=== PATIENT | female | born 1995 | race Caucasian/White ===

== ENCOUNTER 2019-01-18 16:03 | Emergency (ER) | payer OTHER ==
--- OUTSIDE RECORDS SUMMARY | 2019-01-18 16:05 | XMS REPORT | Clinical Summary ---
:1995 Author Organization [facility] Address [address] [place] [address] Care Team Providers Name Role Phone Asked, No Pcp Primary Care Provider Unavailable Allergies No Known Allergies Medications Medication Sig Dispensed Refills Start Date End Date Status ondansetron ODT DISSOLVE 1 TABLET 0 06/14/2016 Active (ZOFRAN-ODT) 4 MG ON THE TONGUE disintegrating tablet EVERY 4 HOURS NEEDED FOR NAUSEA OR VOMITING pantoprazole (PROTONIX) TAKE 1 TABLET BY 11 07/11/2016 Active 20 MG EC tablet MOUTH EVERY MORNING BEFORE BREAKFAST ALPRAZolam (XANAX) 0.25 Take 0.25 mg by 0 07/15/2016 Active MG tablet mouth 2 (two) times a day as needed. sertraline (ZOLOFT) 50 TAKE 1 TAB (50 MG 0 06/08/2016 Active MG tablet TOTAL) BY MOUTH ONCE A DAY FOR 90 DAYS norgestimate-ethinyl Take 1 tablet by 9 07/11/2016 Active estradiol (ORTHO mouth once daily. TRI-CYCLEN,TRINESSA) 0.18/0.215/0.25 mg-35 mcg (28) per tablet PARoxetine (PAXIL) 20 Take 20 mg by 0 09/02/2016 Active MG tablet mouth once daily. 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 Last Filed Vital Signs Not on file Plan of Treatment Health Maintenance Due Date Last Done Comments CHLAMYDIA SCREENING 2010 CERVICAL CANCER SCREENING 12/29/2015 INFLUENZA VACCINE 04/12/2019 Results Not on fileafter 01/17/2018 Insurance Payer Benefit Plan / Group Subscriber ID Type Phone Address AETNA AETNA HMO,POS,EPO, MC/EC xxxxxxxxx HMO (Home) [place] [phone] [facility] ([place]) [place] [address] Advance Directives Patient has advance care planning documents on file. For more information, please contact:Андрей Jeter[address] Hern[address] [place] [address]
[2019-01-18 16:57] LABS: Urine Blood NEGATIVE (NEG); Urine Glucose NEGATIVE (NEG); Urine Protein NEGATIVE (NEG); Urine Specific Gravity 1.015 (1.005-1.030)
[2019-01-18 18:11] LABS: Absolute Lymphocytes (CBC) 1.7 K/uL (0.7-4.9); Absolute Monocytes 0.5 K/uL (0.1-1.3); Absolute Neutrophil 5.9 K/uL (1.8-8.0); Basophils % 1.7 % (0-1.3); Eosinophils % 2.9 % (0-4.4); Hematocrit 45.2 % (36.0-45.0); Lymphocytes % 19.6 % (15.3-44.8); MPV 10.8 fL (7.6-11.3); Monocytes % 5.4 % (3.3-12.3)
[2019-01-18 18:28] LABS: Albumin 4.5 g/dL (3.4-5.0); Bilirubin Direct 0.2 mg/dL (0-0.2); Bilirubin Total 0.8 mg/dL (0.2-1.0); Potassium 3.5 mmol/L (3.5-5.1); Protein, Total 7.9 g/dL (6.4-8.2)
--- NOTE | 2019-01-18 19:05 | RAD REPORT ---
EXAM DESCRIPTION: CTAbdomen Pelvis W Contrast - 01/18/2019 6:56 pm CLINICAL HISTORY: Abdominal pain. right sided abdominal pain, IV ONLY COMPARISON: <Comparisons> TECHNIQUE: Biphasic CT imaging of the abdomen and pelvis was performed with 100 ml non-ionic IV cont rast. All CT scans are performed using dose optimization technique as appropriate and may include automated exposure control or mA/KV adjustment according to patient size. FINDINGS: The lung bases are clear. The liver, spleen, pancreas, adrenal glands and kidneys are within normal limits. No bowel obstruction, free air, free fluid or abscess. The appendix is thickened and dilated to 10 m m likely indicating early acute appendicitis. No evidence of significant lymphadenopathy. No suspicious bony findings. IMPRESSION: Early acute appendicitis is suspected.
[2019-01-18] MEDS ORDERED: CEFOXITIN/SWI 1gm 1 GM/10 ML SYR ONE (20:35)
[2019-01-18] MEDS ORDERED: METRONIDAZOLE 500mg IVPB 500 MG/100 ML BAG IV ONE (20:35)
--- NOTE | 2019-01-18 20:57 | EDPHYS ---
Physician Documentation [facility] Name: Malena Kelley Age: 23 yrs Sex: Female : 1995 Arrival Date: 01/18/2019 Time: 16:05 Bed 24 Private MD: Marylu Reynoso K ED Physician Leandro Keys HPI: 01/18 17:31 This 23 yrs old Female presents to ER via Ambulatory with complaints of jmm Abdominal Pain. 17:31 The patient presents with abdominal pain that is diffuse. Onset: The symptoms/episode jmm began/occurred gradually, last night. This is a a 23 year old female with a history of Von Willebrands that presents to the ED with complaints of abdominal pain beginning last night with nausea. Patient states the pain has worsened since last night. . 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 - Social history:: Smoking status: unknown. - Ebola Screening: : No symptoms or risks identified at this time. ROS: 17:31 Constitutional: Negative for fever, chills, and weight loss, Cardiovascular: Negative jmm for chest pain, palpitations, and edema, Respiratory: Negative for shortness of breath, cough, wheezing, and pleuritic chest pain. 17:31 : Negative for injury, bleeding, discharge, and swelling, MS/Extremity: Negative for injury and deformity, Skin: Negative for injury, rash, and discoloration, Neuro: Negative for headache, weakness, numbness, tingling, and seizure, Psych: Negative for depression, anxiety, suicide ideation, homicidal ideation, and hallucinations. 17:31 Abdomen/GI: Positive for abdominal pain. 17:31 All other systems are negative. Exam: 17:31 Constitutional: This is a well developed, well nourished patient who is awake, alert, jmm and in no acute distress. Head/Face: atraumatic. Eyes: EOMI, no conjunctival erythema appreciated ENT: Moist Mucus Membranes Neck: Trachea midline, Supple Chest/axilla: Normal chest wall appearance and motion. Cardiovascular: Regular rate and rhythm. No edema appreciated Respiratory: Normal respirations, no respiratory distress appreciated 17:31 Abdomen/GI: Inspection: abdomen appears normal, Bowel sounds: normal, Palpation: soft, moderate abdominal tenderness, in the right upper quadrant and right lower quadrant, Rectal exam: 17:31 Back: ROM is normal. 17:31 Musculoskeletal/extremity: ROM: intact in all extremities. 17:31 Skin: Appearance: 17:31 Neuro: Orientation: is normal, Mentation: is normal, Memory: is normal. 17:31 Psych: Behavior/mood is pleasant, cooperative. Vital Signs: 16:09 BP 142 / 86; Pulse 112; Resp 18; Temp 99.5(TE); Pulse Ox 99% on R/A; Weight 58.97 kg; hj Height 2 ft. 54 in. (198.12 cm); Pain 7/10; 18:11 BP 106 / 86; Pulse 86; Resp 17; Pulse Ox 100% ; rv 18:14 Temp 98.7(O); rv 20:28 BP 114 / 71; Pulse 80; Resp 17; Pulse Ox 100% ; rv 20:30 Temp 98.5(O); rv 21:30 BP 116 / 85; Pulse 81; Resp 16; Temp 98.3; Pulse Ox 100% ; rv 22:30 BP 110 / 72; Pulse 79; Resp 17; Temp 98; Pulse Ox 99% ; rv 05 01:47 BP 112 / 86; Pulse 84; Resp 16; Temp 97.8; Pulse Ox 99% ; rv 01/18 16:09 Body Mass Index 15.02 (58.97 kg, 198.12 cm) hj MDM: 01/18 17:27 Patient medically screened. jodee 20:55 Data reviewed: vital signs, nurses notes. Counseling: I had a detailed discussion with jodee the patient and/or guardian regarding: the historical points, exam findings, and any diagnostic results supporting the discharge/admit diagnosis, lab results, radiology results, the need to transfer to another facility. 22:12 ED course: I discussed the patient with Dr. Carmona and Dr. Mora prior to transfer. jodee Mora stated the patient could not be safely managed at this hospital due to lack of labs which would test the patient's clotting factors. I discussed the patient with Dr. Núñez whom accepted transfer to [facility]. I also discussed the patient with surgery and hematology whom would also manage the patient. . 01/18 16:44 Order name: Urine Dipstick--Ancillary (enter results); Complete Time: 17:07 01/18 16:44 Order name: Urine --Ancillary (enter results) 01/18 17:30 Order name: Basic Metabolic Panel; Complete Time: 18:40 [facility] 01/18 17:30 Order name: CBC with Diff; Complete Time: 18:22 [facility] 01/18 17:30 Order name: Creatinine for Radiology; Complete Time: 18:22 [facility] 01/18 17:30 Order name: Hepatic Function; Complete Time: 18:40 [facility] 01/18 17:30 Order name: Lipase; Complete Time: 18:40 [facility] 01/18 17:30 Order name: CT Abd/Pelvis - W/Contrast; Complete Time: 19:25 [facility] 01/18 17:30 Order name: Type And Screen; Complete Time: 18:49 [facility] 01/18 20:45 Order name: PT-INR; Complete Time: 21:31 [facility] 01/18 23:41 Order name: ABO/RH no charge [facility] 01/18 16:11 Order name: Urine Dipstick-Ancillary (obtain specimen); Complete Time: 17: 01/18 16:11 Order name: Urine Test (obtain specimen); Complete Time: 17: 01/18 17:30 Order name: IV Saline Lock; Complete Time: 17:54 [facility] 01/18 17:30 Order name: Labs collected and sent; Complete Time: 17:54 jm Administered Medications: 18:00 Drug: NS 0.9% 1000 ml Route: IV; Rate: 1 bolus; Site: right antecubital; rv 20:28 Follow up: IV Status: Completed infusion; IV Intake: 1000ml rv 20:27 Drug: Mefoxin 1 grams Route: IVPB; Infused Over: 30 mins; Site: right antecubital; rv 21:00 Follow up: IV Status: Completed infusion; IV Intake: 50ml rv 20:47 Drug: Flagyl 500 mg Volume: 100 ml; Route: IVPB; Rate: 200 ml/hr; Infused Over: 30 rv mins; Site: right antecubital; Disposition: 01/19 06:59 Co-signature as Attending Physician, Leandro Keys MD I agree with the assessment and kdr plan of care. Disposition: 01/18/19 20:[address] [facility]. Diagnosis is Acute appendicitis. - Reason for transfer: Higher level of care. - Accepting physician is [place]. - Condition is Stable. - Problem is new. - Symptoms are unchanged. Signatures: Dispatcher [employer] EDMS Leandro Keys MD MD kdr Joey Cutler PA PA jmm Joaquin, Henry, RN RN Sandro Saxena RN RN rv Corrections: (The following items were deleted from the chart) 01:48 01/18 20:56 01/18/2019 20:[address] [facility]. rv Diagnosis is Acute appendicitis. Reason for transfer: Higher level of care. Accepting physician is Wilton. Condition is Stable. Problem is new. Symptoms are unchanged. jodee
--- NOTE | 2019-01-18 20:57 | ER ---
Nurse's Notes [facility] Name: Malena Kelley Age: 23 yrs Sex: Female : 1995 Arrival Date: 01/18/2019 Time: 16:05 Bed 24 Private MD: Marylu Reynoso K Diagnosis: Acute appendicitis Presentation: 01/18 16:07 Presenting complaint: Patient states: i started having this abd pain (cramping) last hj night from the (epigastric area down to the hip area); denies N/V; denies fever; denies diarrhea; LMP- 01/04/19;. Transition of care: patient was not received from another setting of care. Onset of symptoms was January 18, 2019. Risk Assessment: Do you want to hurt yourself or someone else? Patient reports no desire to harm self or others. Initial Sepsis Screen: Does the patient meet any 2 criteria? No. Patient's initial sepsis screen is negative. Does the patient have a suspected source of infection? No. Patient's initial sepsis screen is negative. Care prior to arrival: None. 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 - Social history:: Smoking status: unknown. - Ebola Screening: : No symptoms or risks identified at this time. Screenin:10 Abuse screen: Denies threats or abuse. Denies injuries from another. Nutritional rv screening: No deficits noted. Tuberculosis screening: No symptoms or risk factors identified. Fall Risk None identified. Assessment: 17:09 General: Appears in no apparent distress. uncomfortable, Behavior is calm, cooperative. rv Pain: Complains of pain in abdomen. Neuro: Level of Consciousness is awake, alert, obeys commands, Oriented to person, place, time, situation. Cardiovascular: Capillary refill < 3 seconds. Respiratory: Airway is patent. GI: Bowel sounds present X 4 quads. Abd is soft and non tender X 4 quads. : No signs and/or symptoms were reported regarding the genitourinary system. EENT: No signs and/or symptoms were reported regarding the EENT system. Derm: Skin is intact. Musculoskeletal: No signs and/or symptoms reported regarding the musculoskeletal system. 20:29 Reassessment: Patient appears in no apparent distress at this time. Patient and/or rv family updated on plan of care and expected duration. Pain level reassessed. Patient is alert, oriented x 3, equal unlabored respirations, skin warm/dry/pink. Patient states feeling better. Patient states symptoms have improved. Vital Signs: 16:09 BP 142 / 86; Pulse 112; Resp 18; Temp 99.5(TE); Pulse Ox 99% on R/A; Weight 58.97 kg; hj Height 2 ft. 54 in. (198.12 cm); Pain 7/10; 18:11 BP 106 / 86; Pulse 86; Resp 17; Pulse Ox 100% ; rv 18:14 Temp 98.7(O); rv 20:28 BP 114 / 71; Pulse 80; Resp 17; Pulse Ox 100% ; rv 20:30 Temp 98.5(O); rv 21:30 BP 116 / 85; Pulse 81; Resp 16; Temp 98.3; Pulse Ox 100% ; rv 22:30 BP 110 / 72; Pulse 79; Resp 17; Temp 98; Pulse Ox 99% ; rv 01/19 01:47 BP 112 / 86; Pulse 84; Resp 16; Temp 97.8; Pulse Ox 99% ; rv 01/18 16:09 Body Mass Index 15.02 (58.97 kg, 198.12 cm) ED Course: 01/18 16:05 Patient arrived in ED. ag5 16:05 Marylu Reynoso MD is Private Physician. ag5 16:08 Triage completed. hj 16:10 Arm band placed on right wrist. hj 17:06 [facility] 17:06 Leandro Keys MD is Attending Physician. [facility] 17:09 Sandro Valles, EVI is Primary Nurse. rv 17:11 Patient has correct armband on for positive identification. Bed in low position. Call rv light in reach. Side rails up X 1. Adult w/ patient. Pulse ox on. NIBP on. 17:33 Radiology exam delayed due to lab results not completed at this time. (BUN/Creatinine). 17:54 Initial lab(s) drawn, by me, sent to lab. Inserted saline lock: 22 gauge in right lt1 antecubital area, using aseptic technique. 18:56 CT Abd/Pelvis - W/Contrast In Process Unspecified. EDMS 18:56 CT completed. Patient tolerated procedure well. Patient moved to MI. Patient moved back ak from MI. 21:00 PT-INR Sent. rv 01/19 01:47 No provider procedures requiring assistance completed. Patient transferred, IV remains rv in place. Administered Medications: 01/18 18:00 Drug: NS 0.9% 1000 ml Route: IV; Rate: 1 bolus; Site: right antecubital; rv 20:28 Follow up: IV Status: Completed infusion; IV Intake: 1000ml rv 20:27 Drug: Mefoxin 1 grams Route: IVPB; Infused Over: 30 mins; Site: right antecubital; rv 21:00 Follow up: IV Status: Completed infusion; IV Intake: 50ml rv 20:47 Drug: Flagyl 500 mg Volume: 100 ml; Route: IVPB; Rate: 200 ml/hr; Infused Over: 30 rv mins; Site: right antecubital; Intake: 20:28 IV: 1000ml; Total: 1000ml. rv 21:00 IV: 50ml; Total: 1050ml. rv Outcome: 20:56 ER care complete, transfer ordered by MD. [place] 01/19 01:48 Transferred by ground EMS to [facility], Transfer form completed. rv X-rays sent w/ patient. Condition: stable Discharge instructions given to patient, family, Instructed on discharge instructions, the need for transfer, Demonstrated understanding of instructions. 01:48 Patient left the ED. rv Signatures: Dispatcher [employer] EDMS Joey Cutler PA PA jmm Jones, Susan Isac Peña, Ras Hernandez RN, Ronaldo, RN RN Hans Barakat Leah lt1
[2019-01-18 21:16] LABS: Protime INR 1.73
== END 2019-01-19 01:48 | disposition short-term general hospital (02) ==
LOC: ER 16:03
DX: K35.80 Unspecified acute appendicitis (principal); D68.2 Hereditary deficiency of other clotting factors; D68.311 Acquired hemophilia; D68.0 Von Willebrand disease
CPT/HCPCS: 36415; 74177; 80048; 80076; 81003; 81025; 83690; 85025; 85610; 86850; 86900; 86901; 96361; 96365; 96375; 99285; Q9967

== ENCOUNTER 2020-10-11 06:42 | Emergency (ER) | payer OTHER ==
--- OUTSIDE RECORDS SUMMARY | 2020-10-11 06:44 | XMS REPORT | Clinical Summary ---
:1995 Author Organization [facility] Address [address] [place] [address] Care Team Providers Name Role Phone Asked, Pcp Primary Care Provider Unavailable Allergies No Known Active Allergies Medications Medication Sig Dispensed Refills Start Date End Date Status ondansetron ODT DISSOLVE 1 TABLET 0 06/14/2016 Active (ZOFRAN-ODT) 4 MG ON THE TONGUE disintegrating tablet EVERY 4 HOURS NEEDED FOR NAUSEA OR VOMITING pantoprazole (PROTONIX) TAKE 1 TABLET BY 11 6 Active 20 MG EC tablet MOUTH EVERY MORNING BEFORE BREAKFAST ALPRAZolam (XANAX) 0.25 Take 0.25 mg by 0 07/15/2016 Active MG tablet mouth 2 (two) times a day as needed. sertraline (ZOLOFT) 50 TAKE 1 TAB (50 MG 0 6 Active MG tablet TOTAL) BY MOUTH ONCE A DAY FOR 90 DAYS norgestimate-ethinyl Take 1 tablet by 9 07/11/2016 Active estradiol (ORTHO mouth once daily. TRI-CYCLEN,TRINESSA) 0.18/0.215/0.25 mg-35 mcg (28) per tablet PARoxetine (PAXIL) 20 Take 20 mg by 0 09/02/2016 Active MG tablet mouth once daily. 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 Anxiety 08/16/2016 Surgical History Surgery Date Site/Laterality Comments DENTAL SURGERY UPPER GASTROINTESTINAL ENDOSCOPY Medical History Medical History Date Comments Anemia Hemophilia (HCC) 08/16/2016 Anxiety 08/16/2016 Family History Medical History Relation Name Comments Breast cancer Maternal Grandmother Relation Name Status Comments Maternal Grandmother gastroperis is Social History Tobacco Use Types Packs/Day Years Used Date Never Smoker Alcohol Use Drinks/Week oz/Week Comments Yes Sex Assigned at Date Recorded Not on file Last Filed Vital Signs Not on file Plan of Treatment Health Maintenance Due Date Last Done Comments COVID-19 VACCINE (1 of 2) 2010 CERVICAL CANCER SCREENING 12/29/2015 INFLUENZA VACCINE 04/12/2020 Results Not on fileafter 10/11/2019 Advance Directives For more information, please contact: [phone] Type Date Recorded 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
--- OUTSIDE RECORDS SUMMARY | 2020-10-11 06:44 | XMS REPORT | Clinical Summary ---
:1995 Author Organization [facility] Address [address] [place] [id number] Care Team Providers Name Role Phone System, Provider Not In Primary Care Provider Unavailable Allergies No Known Allergies Medications Medication Sig Dispensed Refills Start Date End Date Status cetirizine (ZYRTEC) 10 Take 10 mg by 0 Active MG tablet mouth daily. Active Problems Problem Noted Date Hypokalemia 01/21/2019 Leukocytosis 01/20/2019 Volume depletion 01/20/2019 Nausea & vomiting 01/20/2019 Acute appendicitis 01/19/2019 Von Willebrand disease 01/19/2019 Hemophilia 01/19/2019 Social History Tobacco Use Types Packs/Day Years Used Date Current Every Day Smoker Cigarettes 0.5 Smokeless Tobacco: Never Used Sex Assigned at Date Recorded Not on file Last Filed Vital Signs Not on file Plan of Treatment Health Maintenance Due Date Last Done Comments PNEUMOCOCCAL VACCINE 0-64 YRS (1 of 1 - PPSV23) 2000 LIPID PANEL 2014 CERVICAL CANCER SCREENING PAP ONLY (Age 21-65) 12/29/2015 INFLUENZA VACCINE (#1) 2020 Results Not on fileafter 10/11/2019 Insurance Payer Benefit Plan / Subscriber ID Effective Dates Phone Addre ss Type Group AETNA - MGD AETNA HMO POS [id number] 2018-Present HMO/POS CARE QPOS Advance Directives For more information, please contact: [phone] Code Status Date Activated Date Inactivated Comments Full Code 01/19/2019 5:33 PM 01/23/2019 3:54 PM This code status was determined by: Patient Full Code 01/19/2019 4:23 AM 01/19/2019 5:33 PM This code status was determined by: Patient
--- OUTSIDE RECORDS SUMMARY | 2020-10-11 06:45 | XMS REPORT | Continuity of Care Document ---
:1995 Author Organization [facility] t Address [address] [place] [address] Care Team Providers Name Role Phone Asked, Pcp Primary Care Physician Unavailable BISI ORTEGA Attending Clinician Unavailable BISI ORTEGA Admitting Clinician Unavailable Problems Condition Condition Condition Status Onset Resolution Last Treating Co mments Source Name Details Category Date Date Treatment Clinician Date Hypokalemi Hypokalemi Disease Active [address] [facility] 00 [place] Leukocytos Leukocytos Disease Active [facility] [place] Volume Volume Disease Active [facility] depletion depletion [facility] - [facility]: Medical 00 [place] Nausea & Nausea & Disease [facility] 00 [place] Acute Acute Disease Active 2019- [facility] appendicit appendicit 5-10 Tami kes - is is 00:00: Medical 00 [place] Von Von Disease Active 2018- [facility] Willebrand Willebrand 5-10 Tami kes - disease disease 00:00: Medical 00 [place] 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 Family History Family Member Diagnosis Comments Start Date Stop Date Source Maternal grandmother Breast cancer ran [place] Social History Social Habit Start Date Stop Date Quantity Comments Source History of tobacco Cigarette Smoker [facility] Sex Assigned At [facility] Cigarettes smoked 2019-01-22 2019-01-22 [facility] - current (pack per 00:00:00 00:00:00 [facility] Center day) - Reported Tobacco use and 2019-01-22 2019-01-22 Never used [facility] - exposure 00:00:00 00:00:00 [facility] Alcohol intake 2016-09-22 2016-09-22 Current drinker [place] 00:00:00 00:00:00 of alcohol [facility] (finding) Smoking Status Start Date Stop Date Source Current every day smoker 2019-01-22 00:00:00 [facility] Never smoker [facility] Santosis shukri Medications Ordered Filled Start Stop Current Ordering Indication Dosage Frequency Signature Comments Components Source Medication Medication Date Date Medication? Clinician (SIG) Name Name cetirizine Yes 10mg QD Take [address] (ZYRTEC) 10 5-14 by mouth [facility] - MG tablet 13:53: daily. [facility] [address] PARoxetine 2015-09 Yes 20mg QD Take 20 mg [place] (PAXIL) 20 2-22 by mouth Metho di MG tablet 00:00: once st 00 daily. ALPRAZolam 2015-09 Yes .25mg Q.5D Take 0.25 [place] (XANAX) 1-03 mg by [facility] 0.25 MG 00:00: mouth 2 st tablet 00 (two) times a day as needed. pantoprazol 2015-09 Yes TAKE 1 [place] 0-30 TABLET BY [facility] (PROTONIX) 00:00: MOUTH st 20 MG EC 00 EVERY tablet MORNING BEFORE BREAKFAST norgestimat 2015-09 Yes 1{tbl} QD Take 1 [place] e-ethinyl 0-30 tablet by Metho di estradiol 00:00: mouth once st (ORTHO 00 daily. TRI-CYCLEN, TRINESSA) 0.18/0.215/ 0.25 mg-35 mcg (28) per tablet ondansetron 2015-09 Yes DISSOLVE 1 [place] ODT 0-03 TABLET ON [facility] (ZOFRAN-ODT 00:00: THE TONGUE st ) 4 MG 00 EVERY 4 disintegrat HOURS ing tablet NEEDED FOR NAUSEA OR VOMITING sertraline Yes TAKE 1 TAB [place] (ZOLOFT) 50 9-27 (50 MG Method i MG tablet 00:00: TOTAL) BY st 00 MOUTH ONCE A DAY FOR 90 DAYS Procedures This patient has no known procedures. Plan of Care Planned Activity Planned Date Details Comments Source Future Scheduled 2020-05-13 INFLUENZA VACCINE (#1) [facility] Test 00:[facility]:00 [code = INFLUENZA Medical Ce nter VACCINE (#1)] Future Scheduled 2020-04-12 INFLUENZA VACCINE [place] [facility] Test 00:00:00 [code = INFLUENZA VACCINE] Future Scheduled 2015-12-29 Screening for [facility] Test 00:00:00 malignant neoplasm of cervix (procedure) [code = 748815444] Future Scheduled 2015-12-[address] [facility] - Test 00:00:00 malignant neoplasm of [facility] cervix (procedure) [code = 681544417] Future Scheduled [address] [facility] - Test 00:00:00 (procedure) [code = [facility] [id number]] Future Scheduled 2010 COVID-19 VACCINE (1 of [place] [facility] Test 00:00:00 2) [code = COVID-19 VACCINE (1 of 2)] Future Scheduled [address] [facility] - Test 00:00:00 0-64 YRS (1 of 1 - Medical C enter PPSV23) [code = PNEUMOCOCCAL VACCINE 0-64 YRS (1 of 1 - PPSV23)] Results Test Description Test Time Test Comments Results Result Comments Source [facility] ACTIVITY 2019-01-23 12:37:00 Test Item Value Reference Range Interpretation Comme nts VWF ACTIVITY (BEAKER) (test code = 3210) 78.0 % 40.0-120.0 [id number] 05:56:00 Test Item Value Reference Range Interpretation Comments PROTIME (BEAKER) (test code = 17.6 seconds 11.7-14.7 H 759) INR (BEAKER) (test code = 370) 1.5 <=5.9 PARTIAL THROMBOPLASTIN TIME 32.9 seconds 22.5-36.0 (BEAKER) (test code = 760) RECOMMENDED COUMADIN/WARFARIN INR THERAPY RANGESSTANDARD DOSE: 2.0 - 3.0 Includes: PROPHYLAXIS forvenous thrombosis, systemic embolization; TREATMENT for venous thrombosis and/or pulmonary embolus.HIGH RISK: Target INR is 2.5-3.5 for patients with mechanical heart valves.CBC W/PLT COUNT & AUTO DIFFERENTIAL 2019-01-23 05:54:00 Test Item Value Reference Range Interpretation Comments WHITE BLOOD CELL COUNT (BEAKER) 4.6 K/ L 3.5-10.5 (test code = 775) RED BLOOD CELL COUNT (BEAKER) 4.20 M/ L 3.93-5.22 (test code = 761) HEMOGLOBIN (BEAKER) (test code = 13.4 GM/DL 11.2-15.7 410) HEMATOCRIT (BEAKER) (test code = 38.7 % 34.1-44.9 411) MEAN CORPUSCULAR VOLUME (BEAKER) 92.1 fL 79.4-94.8 (test code = 753) MEAN CORPUSCULAR HEMOGLOBIN 31.9 pg 25.6-32.2 (BEAKER) (test code = 751) MEAN CORPUSCULAR HEMOGLOBIN CONC 34.6 GM/DL 32.2-35.5 (BEAKER) (test code = 752) RED CELL DISTRIBUTION WIDTH 12.4 % 11.7-14.4 (BEAKER) (test code = 412) PLATELET COUNT (BEAKER) (test 153 K/CU MM 150-450 code = 756) MEAN PLATELET VOLUME (BEAKER) 12.0 fL 9.4-12.3 (test code = 754) NUCLEATED RED BLOOD CELLS 0 /100 WBC 0-0 (BEAKER) (test code = 413) NEUTROPHILS RELATIVE PERCENT 43 % (BEAKER) (test code = 429) LYMPHOCYTES RELATIVE PERCENT 37 % (BEAKER) (test code = 430) MONOCYTES RELATIVE PERCENT 8 % (BEAKER) (test code = 431) EOSINOPHILS RELATIVE PERCENT 10 % (BEAKER) (test code = 432) BASOPHILS RELATIVE PERCENT 1 % (BEAKER) (test code = 437) NEUTROPHILS ABSOLUTE COUNT 1.98 K/ L 1.56-6.13 (BEAKER) (test code = 670) LYMPHOCYTES ABSOLUTE COUNT 1.72 K/ L 1.18-3.74 (BEAKER) (test code = 414) MONOCYTES ABSOLUTE COUNT (BEAKER) 0.38 K/ L 0.24-0.36 H (test code = 415) EOSINOPHILS ABSOLUTE COUNT 0.44 K/ L 0.04-0.36 H (BEAKER) (test code = 416) BASOPHILS ABSOLUTE COUNT (BEAKER) 0.06 K/ L 0.01-0.08 (test code = 417) IMMATURE GRANULOCYTES-RELATIVE 0 % 0-1 PERCENT (BEAKER) (test code = 2801) TISSUE [id number] 16:11:00Surgical Pathology Report Case: [id number] Authorizing Provider: Dave Foss MD Collected: 01/19/2019 1626 Ordering Location: [facility] PERIOPERATIVE Received: 01/19/2019 1557 SERVICES Pathologist: Mary Echavarria MD Specimen: Appendix APPENDIX, APPENDECTOMY: - ACUTE APPENDICITIS - NEGATIVE FOR MALIGNANCY Signing Pathologist Direct Phone Line: [phone] signed by Mary Echavarria MD on 01/22/2019 at 4:11 [id number] AppendixA. Received in a container labeled "appendix" is 6 cm long appendix with a diameter of 0.6 cm. There is 5 x 1.2 x 1 cm landa-yellow mesoappendix. The external surface is landa-pink and hyperemic. The specimen is serially sectioned to show patent lumen filled with fecal material with a diameter of 0.3 cm. The wall is 0.2 cm thick. No lesions are grossly identified. Sales [employer] Service [employer] sections are submitted as follows: A1, appendix margin en face and bisected cyst; A2, reimbursement representative section of the appendix. TH/plPERFORMEDVWF [id number] 14:07:00 Test Item Value Reference Range Interpretation Comments VWF ACTIVITY (BEAKER) (test code = 80.0 % 40.0-120.0 3210) FACTOR 7 [id number] 12:20:00 Test Item Value Reference Range Interpretation Comments FACTOR VII ACTIVITY (BEAKER) (test 24.0 % 55.0-170.0 L code = 664) [id number] 06:10:00 Test Item Value Reference Range Interpretation Comments MAGNESIUM (BEAKER) 1.8 mg/dL 1.6-2.6 Specimen slightly (test code = 627) hemolyzed BASIC METABOLIC [id number] 06:10:00 Test Item Value Reference Range Interpretation Comments SODIUM (BEAKER) 138 meq/L 136-145 (test code = 381) POTASSIUM (BEAKER) 3.5 meq/L 3.5-5.1 Specimen slightly (test code = 379) hemolyzed CHLORIDE (BEAKER) 108 meq/L 98-107 H (test code = 382) CO2 (BEAKER) (test 22 meq/L 22-29 code = 355) BLOOD UREA NITROGEN 4 mg/dL 7-21 L (BEAKER) (test code = 354) CREATININE (BEAKER) 0.68 mg/dL 0.57-1.25 Specimen slightly (test code = 358) hemolyzed GLUCOSE RANDOM 77 mg/dL 70-105 (BEAKER) (test code = 652) CALCIUM (BEAKER) 8.1 mg/dL 8.4-10.2 L (test code = 697) EGFR (BEAKER) (test 106 mL/min/1.73 ESTIM ATED GFR IS code = 1092) sq m NOT ACCURATE CREATININE CLEARANCE IN PREDICTING GLOMERULAR FILTRATION RATE . ESTIMATED GFR I S NOT APPLICABLE FOR DIALYSIS PATIEN TS. HEPATIC FUNCTION [id number] 06:10:00 Test Item Value Reference Range Interpretation Comments TOTAL PROTEIN (BEAKER) 5.9 gm/dL 6.0-8.3 L Speci men slightly (test code = 770) hemolyzed ALBUMIN (BEAKER) (test 3.4 g/dL 3.5-5.0 L Speci men slightly code = 1145) hemolyzed BILIRUBIN TOTAL 0.4 mg/dL 0.2-1.2 Specimen sli ghtly (BEAKER) (test code = hemoly zed 377) BILIRUBIN DIRECT 0.2 mg/dL 0.1-0.5 Specimen sl ightly (BEAKER) (test code = hemoly zed 706) ALKALINE PHOSPHATASE 40 U/L 40-150 (BEAKER) (test code = 346) AST (SGOT) (BEAKER) 14 U/L 5-34 Specimen slightly (test code = 353) hemolyzed ALT (SGPT) (BEAKER) 10 U/L 6-55 Specimen slightly (test code = 347) hemolyzed [id number] 05:40:00 Test Item Value Reference Range Interpretation Comments PROTIME (BEAKER) (test code = 18.4 seconds 11.7-14.7 H 759) INR (BEAKER) (test code = 370) 1.6 <=5.9 PARTIAL THROMBOPLASTIN TIME 32.3 seconds 22.5-36.0 (BEAKER) (test code = 760) RECOMMENDED COUMADIN/WARFARIN INR THERAPY RANGESSTANDARD DOSE: 2.0 - 3.0 Includes: PROPHYLAXIS forvenous thrombosis, systemic embolization; TREATMENT for venous thrombosis and/or pulmonary embolus.HIGH RISK: Target INR is 2.5-3.5 for patients with mechanical heart valves.CBC W/PLT COUNT & AUTO DIFFERENTIAL 2019-01-22 05:35:00 Test Item Value Reference Range Interpretation Comments WHITE BLOOD CELL COUNT (BEAKER) 6.9 K/ L 3.5-10.5 (test code = 775) RED BLOOD CELL COUNT (BEAKER) 3.74 M/ L 3.93-5.22 L (test code = 761) HEMOGLOBIN (BEAKER) (test code = 11.8 GM/DL 11.2-15.7 410) HEMATOCRIT (BEAKER) (test code = 35.1 % 34.1-44.9 411) MEAN CORPUSCULAR VOLUME (BEAKER) 93.9 fL 79.4-94.8 (test code = 753) MEAN CORPUSCULAR HEMOGLOBIN 31.6 pg 25.6-32.2 (BEAKER) (test code = 751) MEAN CORPUSCULAR HEMOGLOBIN CONC 33.6 GM/DL 32.2-35.5 (BEAKER) (test code = 752) RED CELL DISTRIBUTION WIDTH 12.1 % 11.7-14.4 (BEAKER) (test code = 412) PLATELET COUNT (BEAKER) (test 138 K/CU MM 150-450 L code = 756) MEAN PLATELET VOLUME (BEAKER) 12.7 fL 9.4-12.3 H (test code = 754) NUCLEATED RED BLOOD CELLS 0 /100 WBC 0-0 (BEAKER) (test code = 413) NEUTROPHILS RELATIVE PERCENT 60 % (BEAKER) (test code = 429) LYMPHOCYTES RELATIVE PERCENT 28 % (BEAKER) (test code = 430) MONOCYTES RELATIVE PERCENT 9 % (BEAKER) (test code = 431) EOSINOPHILS RELATIVE PERCENT 3 % (BEAKER) (test code = 432) BASOPHILS RELATIVE PERCENT 1 % (BEAKER) (test code = 437) NEUTROPHILS ABSOLUTE COUNT 4.10 K/ L 1.56-6.13 (BEAKER) (test code = 670) LYMPHOCYTES ABSOLUTE COUNT 1.90 K/ L 1.18-3.74 (BEAKER) (test code = 414) MONOCYTES ABSOLUTE COUNT (BEAKER) 0.61 K/ L 0.24-0.36 H (test code = 415) EOSINOPHILS ABSOLUTE COUNT 0.23 K/ L 0.04-0.36 (BEAKER) (test code = 416) BASOPHILS ABSOLUTE COUNT (BEAKER) 0.04 K/ L 0.01-0.08 (test code = 417) IMMATURE GRANULOCYTES-RELATIVE 0 % 0-1 PERCENT (BEAKER) (test code = 2801) VWF [id number] 11:57:00 Test Item Value Reference Range Interpretation Comments VWF ACTIVITY (BEAKER) (test code = 75.0 % 40.0-120.0 3210) HEPATIC FUNCTION [id number] 05:56:00 Test Item Value Reference Range Interpretation Comments TOTAL PROTEIN (BEAKER) (test code = 6.2 gm/dL 6.0-8.3 770) ALBUMIN (BEAKER) (test code = 1145) 3.7 g/dL 3.5-5.0 BILIRUBIN TOTAL (BEAKER) (test code 0.5 mg/dL 0.2-1.2 = 377) BILIRUBIN DIRECT (BEAKER) (test 0.2 mg/dL 0.1-0.5 code = 706) ALKALINE PHOSPHATASE (BEAKER) (test 45 U/L 40-150 code = 346) AST (SGOT) (BEAKER) (test code = 11 U/L 5-34 353) ALT (SGPT) (BEAKER) (test code = 10 U/L 6-55 347) BASIC METABOLIC [id number] 05:56:00 Test Item Value Reference Range Interpretation Comments SODIUM (BEAKER) 137 meq/L 136-145 (test code = 381) POTASSIUM (BEAKER) 3.4 meq/L 3.5-5.1 L (test code = 379) CHLORIDE (BEAKER) 107 meq/L 98-107 (test code = 382) CO2 (BEAKER) (test 25 meq/L 22-29 code = 355) BLOOD UREA NITROGEN 7 mg/dL 7-21 (BEAKER) (test code = 354) CREATININE (BEAKER) 0.76 mg/dL 0.57-1.25 (test code = 358) GLUCOSE RANDOM 95 mg/dL 70-105 (BEAKER) (test code = 652) CALCIUM (BEAKER) 8.3 mg/dL 8.4-10.2 L (test code = 697) EGFR (BEAKER) (test 93 mL/min/1.73 ESTIMA [place] GFR IS code = 1092) sq m NOT ACCURATE CREATININE CLEARANCE IN PREDICTING GLOMERULAR FILTRATION RATE . ESTIMATED GFR I S NOT APPLICABLE FOR DIALYSIS PATIEN TS. [id number] 05:47:00 Test Item Value Reference Range Interpretation Comments PROTIME (BEAKER) (test code = 18.2 seconds 11.7-14.7 H 759) INR (BEAKER) (test code = 370) 1.6 <=5.9 PARTIAL THROMBOPLASTIN TIME 32.7 seconds 22.5-36.0 (BEAKER) (test code = 760) RECOMMENDED COUMADIN/WARFARIN INR THERAPY RANGESSTANDARD DOSE: 2.0 - 3.0 Includes: PROPHYLAXIS forvenous thrombosis, systemic embolization; TREATMENT for venous thrombosis and/or pulmonary embolus.HIGH RISK: Target INR is 2.5-3.5 for patients with mechanical heart valves.CBC W/PLT COUNT & AUTO DIFFERENTIAL 2019-01-21 05:37:00 Test Item Value Reference Range Interpretation Comments WHITE BLOOD CELL COUNT (BEAKER) 7.1 K/ L 3.5-10.5 (test code = 775) RED BLOOD CELL COUNT (BEAKER) 4.04 M/ L 3.93-5.22 (test code = 761) HEMOGLOBIN (BEAKER) (test code = 12.8 GM/DL 11.2-15.7 410) HEMATOCRIT (BEAKER) (test code = 37.3 % 34.1-44.9 411) MEAN CORPUSCULAR VOLUME (BEAKER) 92.3 fL 79.4-94.8 (test code = 753) MEAN CORPUSCULAR HEMOGLOBIN 31.7 pg 25.6-32.2 (BEAKER) (test code = 751) MEAN CORPUSCULAR HEMOGLOBIN CONC 34.3 GM/DL 32.2-35.5 (BEAKER) (test code = 752) RED CELL DISTRIBUTION WIDTH 12.2 % 11.7-14.4 (BEAKER) (test code = 412) PLATELET COUNT (BEAKER) (test 138 K/CU MM 150-450 L code = 756) MEAN PLATELET VOLUME (BEAKER) 12.3 fL 9.4-12.3 (test code = 754) NUCLEATED RED BLOOD CELLS 0 /100 WBC 0-0 (BEAKER) (test code = 413) NEUTROPHILS RELATIVE PERCENT 53 % (BEAKER) (test code = 429) LYMPHOCYTES RELATIVE PERCENT 36 % (BEAKER) (test code = 430) MONOCYTES RELATIVE PERCENT 8 % (BEAKER) (test code = 431) EOSINOPHILS RELATIVE PERCENT 2 % (BEAKER) (test code = 432) BASOPHILS RELATIVE PERCENT 1 % (BEAKER) (test code = 437) NEUTROPHILS ABSOLUTE COUNT 3.76 K/ L 1.56-6.13 (BEAKER) (test code = 670) LYMPHOCYTES ABSOLUTE COUNT 2.54 K/ L 1.18-3.74 (BEAKER) (test code = 414) MONOCYTES ABSOLUTE COUNT (BEAKER) 0.59 K/ L 0.24-0.36 H (test code = 415) EOSINOPHILS ABSOLUTE COUNT 0.14 K/ L 0.04-0.36 (BEAKER) (test code = 416) BASOPHILS ABSOLUTE COUNT (BEAKER) 0.05 K/ L 0.01-0.08 (test code = 417) IMMATURE GRANULOCYTES-RELATIVE 0 % 0-1 PERCENT (BEAKER) (test code = 2801) CT, [id number] 12:23:00FINAL REPORT TECHNIQUE: CT of the abdomen and pelvis WITH intravenous contrast and WITHOUT oral contrast. Dose modulation, iterative reconstruction, and/or weight-based adjustment of the mA/kV was utilized to reduce the radiation dose to as low as reasonably achievable. INDICATION: 23-year-old woman with abdominal pain. COMPARISON: None. FINDINGS: LOWER THORAX: Unremarkable. HEPATOBILIARY: No focal hepatic lesions. Gallbladder is unremarkable. No biliary ductal dilatation.SPLEEN: No splenomegaly.PANCREAS: No focal masses or ductal dilatation. ADRENALS: No adrenal nodules.KIDNEYS/URETERS: No hydronephrosis, stones, or solid mass lesions.PELVIC ORGANS/BLADDER: Unremarkable. PERITONEUM/RETROPERITONEUM: Trace free fluid in the pelvis. Trace free air in the abdomen and pelvis.LYMPH NODES: No lymphadenopathy.VESSELS: Unremarkable. GI TRACT: Recent appendectomy. No distention orwall thickening. BONES AND SOFT TISSUES: Bones are unremarkable. Small amount of air in the soft tissues of the right lower abdominal wall. IMPRESSION:No acute abnormalities in the abdomen or pelvis. Expected changes from recent appendectomy, including trace pneumoperitoneum and subcutaneous emphysema in the right lower abdominal wall. Trace free fluid in the pelvis, likely physiologic and/or related to recent appendectomy. Signed: Ruddy Worley MDReport Verified Date/Time: 01/20/2019 12:23:01 Reading Location: [facility] B1 C013Y CT Body Reading Room URINALYSIS W/ REFLEX URINE [id number] 12:15:00 Test Item Value Reference Range Interpretation Comments COLOR (BEAKER) (test code = 470) Yellow CLARITY (BEAKER) (test code = 469) Hazy SPECIFIC GRAVITY UA (BEAKER) (test 1.017 1.001-1.035 code = 468) PH UA (BEAKER) (test code = 467) 6.0 5.0-8.0 PROTEIN UA (BEAKER) (test code = 10 mg/dL Negative A 464) GLUCOSE UA (BEAKER) (test code = Negative Negative 365) KETONES UA (BEAKER) (test code = >150 mg/dL Negative A 371) BILIRUBIN UA (BEAKER) (test code = Negative Negative 462) BLOOD UA (BEAKER) (test code = Trace Negative A 461) NITRITE UA (BEAKER) (test code = Negative Negative 465) LEUKOCYTE ESTERASE UA (BEAKER) Moderate Negative A (test code = 466) UROBILINOGEN UA (BEAKER) (test 0.2 mg/dL 0.2-1.0 code = 463) RBC UA (BEAKER) (test code = 519) 1 /HPF WBC UA (BEAKER) (test code = 520) 0 /HPF MUCUS (BEAKER) (test code = 1574) Occasional SQUAMOUS EPITHELIAL (BEAKER) (test 49 /HPF code = 516) SOURCE(BEAKER) (test code = 2795) FACTOR 7 [id number] 11:50:00 Test Item Value Reference Range Interpretation Comments FACTOR VII ACTIVITY (BEAKER) (test 20.0 % 55.0-170.0 L code = 664) VWF [id number] 11:28:00 Test Item Value Reference Range Interpretation Comments VWF ACTIVITY (BEAKER) (test code = 75.0 % 40.0-120.0 3210) HEPATIC FUNCTION [id number] 05:37:00 Test Item Value Reference Range Interpretation Comments TOTAL PROTEIN (BEAKER) (test code = 6.8 gm/dL 6.0-8.3 770) ALBUMIN (BEAKER) (test code = 1145) 4.1 g/dL 3.5-5.0 BILIRUBIN TOTAL (BEAKER) (test code 0.9 mg/dL 0.2-1.2 = 377) BILIRUBIN DIRECT (BEAKER) (test 0.4 mg/dL 0.1-0.5 code = 706) ALKALINE PHOSPHATASE (BEAKER) (test 58 U/L 40-150 code = 346) AST (SGOT) (BEAKER) (test code = 16 U/L 5-34 353) ALT (SGPT) (BEAKER) (test code = 11 U/L 6-55 347) BASIC METABOLIC [id number] 05:37:00 Test Item Value Reference Range Interpretation Comments SODIUM (BEAKER) 133 meq/L 136-145 L (test code = 381) POTASSIUM (BEAKER) 4.3 meq/L 3.5-5.1 (test code = 379) CHLORIDE (BEAKER) 106 meq/L 98-107 (test code = 382) CO2 (BEAKER) (test 15 meq/L 22-29 L code = 355) BLOOD UREA NITROGEN 7 mg/dL 7-21 (BEAKER) (test code = 354) CREATININE (BEAKER) 0.66 mg/dL 0.57-1.25 (test code = 358) GLUCOSE RANDOM 103 mg/dL 70-105 (BEAKER) (test code = 652) CALCIUM (BEAKER) 8.7 mg/dL 8.4-10.2 (test code = 697) EGFR (BEAKER) (test 110 mL/min/1.73 ESTIM ATED GFR IS code = 1092) sq m NOT ACCURATE CREATININE CLEARANCE IN PREDICTING GLOMERULAR FILTRATION RATE . ESTIMATED GFR I S NOT APPLICABLE FOR DIALYSIS PATIEN TS. CBC W/PLT COUNT & AUTO [id number] 04:55:00 Test Item Value Reference Range Interpretation Comments WHITE BLOOD CELL COUNT (BEAKER) 12.2 K/ L 3.5-10.5 H (test code = 775) RED BLOOD CELL COUNT (BEAKER) 4.44 M/ L 3.93-5.22 (test code = 761) HEMOGLOBIN (BEAKER) (test code = 13.9 GM/DL 11.2-15.7 410) HEMATOCRIT (BEAKER) (test code = 40.3 % 34.1-44.9 411) MEAN CORPUSCULAR VOLUME (BEAKER) 90.8 fL 79.4-94.8 (test code = 753) MEAN CORPUSCULAR HEMOGLOBIN 31.3 pg 25.6-32.2 (BEAKER) (test code = 751) MEAN CORPUSCULAR HEMOGLOBIN CONC 34.5 GM/DL 32.2-35.5 (BEAKER) (test code = 752) RED CELL DISTRIBUTION WIDTH 11.9 % 11.7-14.4 (BEAKER) (test code = 412) PLATELET COUNT (BEAKER) (test 165 K/CU MM 150-450 code = 756) MEAN PLATELET VOLUME (BEAKER) 12.2 fL 9.4-12.3 (test code = 754) NUCLEATED RED BLOOD CELLS 0 /100 WBC 0-0 (BEAKER) (test code = 413) NEUTROPHILS RELATIVE PERCENT 88 % (BEAKER) (test code = 429) LYMPHOCYTES RELATIVE PERCENT 8 % (BEAKER) (test code = 430) MONOCYTES RELATIVE PERCENT 4 % (BEAKER) (test code = 431) EOSINOPHILS RELATIVE PERCENT 0 % (BEAKER) (test code = 432) BASOPHILS RELATIVE PERCENT 0 % (BEAKER) (test code = 437) NEUTROPHILS ABSOLUTE COUNT 10.74 K/ L 1.56-6.13 H (BEAKER) (test code = 670) LYMPHOCYTES ABSOLUTE COUNT 0.93 K/ L 1.18-3.74 L (BEAKER) (test code = 414) MONOCYTES ABSOLUTE COUNT (BEAKER) 0.46 K/ L 0.24-0.36 H (test code = 415) EOSINOPHILS ABSOLUTE COUNT 0.00 K/ L 0.04-0.36 L (BEAKER) (test code = 416) BASOPHILS ABSOLUTE COUNT (BEAKER) 0.01 K/ L 0.01-0.08 (test code = 417) IMMATURE GRANULOCYTES-RELATIVE 0 % 0-1 PERCENT (BEAKER) (test code = 2801) [id number] 04:54:00 Test Item Value Reference Range Interpretation Comments PROTIME (BEAKER) (test code = 17.5 seconds 11.7-14.7 H 759) INR (BEAKER) (test code = 370) 1.5 <=5.9 PARTIAL THROMBOPLASTIN TIME 32.6 seconds 22.5-36.0 (BEAKER) (test code = 760) RECOMMENDED COUMADIN/WARFARIN INR THERAPY RANGESSTANDARD DOSE: 2.0 - 3.0 Includes: PROPHYLAXIS forvenous thrombosis, systemic embolization; TREATMENT for venous thrombosis and/or pulmonary embolus.HIGH RISK: Target INR is 2.5-3.5 for patients with mechanical heart valves.VWF [id number] 12:01:00 Test Item Value Reference Range Interpretation Comments VWF ACTIVITY (BEAKER) (test code = 65.0 % 40.0-120.0 3210) SCREEN, [id number] 11:25:00 Test Item Value Reference Range Interpretation Comments TEST URINE (BEAKER) (test Negative code = 583) FACTOR 7 [id number] 11:17:00 Test Item Value Reference Range Interpretation Comments FACTOR VII ACTIVITY (BEAKER) (test 25.0 % 55.0-170.0 L code = 664) FACTOR 8 [id number] 10:39:00 Test Item Value Reference Range Interpretation Comments FACTOR VIII ACTIVITY (BEAKER) (test 84.0 % 45.0-150.0 code = 663) VON [place] FACTOR (VWF) [id number] 09:32:00 Test Item Value Reference Range Interpretation Comments VWF ANTIGEN (BEAKER) (test code = 57.0 % 50.0-160.0 3215) [id number] 08:19:00 Test Item Value Reference Range Interpretation Comments PROTIME (BEAKER) (test code = 17.3 seconds 11.7-14.7 H 759) INR (BEAKER) (test code = 370) 1.5 <=5.9 PARTIAL THROMBOPLASTIN TIME 35.6 seconds 22.5-36.0 (BEAKER) (test code = 760) RECOMMENDED COUMADIN/WARFARIN INR THERAPY RANGESSTANDARD DOSE: 2.0 - 3.0 Includes: PROPHYLAXIS forvenous thrombosis, systemic embolization; TREATMENT for venous thrombosis and/or pulmonary embolus.HIGH RISK: Target INR is 2.5-3.5 for patients with mechanical heart valves.CBC W/PLT COUNT & AUTO DIFFERENTIAL 2019-01-19 08:02:00 Test Item Value Reference Range Interpretation Comments WHITE BLOOD CELL COUNT (BEAKER) 4.9 K/ L 3.5-10.5 (test code = 775) RED BLOOD CELL COUNT (BEAKER) 4.10 M/ L 3.93-5.22 (test code = 761) HEMOGLOBIN (BEAKER) (test code = 13.2 GM/DL 11.2-15.7 410) HEMATOCRIT (BEAKER) (test code = 38.6 % 34.1-44.9 411) MEAN CORPUSCULAR VOLUME (BEAKER) 94.1 fL 79.4-94.8 (test code = 753) MEAN CORPUSCULAR HEMOGLOBIN 32.2 pg 25.6-32.2 (BEAKER) (test code = 751) MEAN CORPUSCULAR HEMOGLOBIN CONC 34.2 GM/DL 32.2-35.5 (BEAKER) (test code = 752) RED CELL DISTRIBUTION WIDTH 12.5 % 11.7-14.4 (BEAKER) (test code = 412) PLATELET COUNT (BEAKER) (test 133 K/CU MM 150-450 L code = 756) MEAN PLATELET VOLUME (BEAKER) 12.1 fL 9.4-12.3 (test code = 754) NUCLEATED RED BLOOD CELLS 0 /100 WBC 0-0 (BEAKER) (test code = 413) NEUTROPHILS RELATIVE PERCENT 47 % (BEAKER) (test code = 429) LYMPHOCYTES RELATIVE PERCENT 37 % (BEAKER) (test code = 430) MONOCYTES RELATIVE PERCENT 8 % (BEAKER) (test code = 431) EOSINOPHILS RELATIVE PERCENT 6 % (BEAKER) (test code = 432) BASOPHILS RELATIVE PERCENT 1 % (BEAKER) (test code = 437) NEUTROPHILS ABSOLUTE COUNT 2.33 K/ L 1.56-6.13 (BEAKER) (test code = 670) LYMPHOCYTES ABSOLUTE COUNT 1.84 K/ L 1.18-3.74 (BEAKER) (test code = 414) MONOCYTES ABSOLUTE COUNT (BEAKER) 0.40 K/ L 0.24-0.36 H (test code = 415) EOSINOPHILS ABSOLUTE COUNT 0.30 K/ L 0.04-0.36 (BEAKER) (test code = 416) BASOPHILS ABSOLUTE COUNT (BEAKER) 0.04 K/ L 0.01-0.08 (test code = 417) IMMATURE GRANULOCYTES-RELATIVE 0 % 0-1 PERCENT (BEAKER) (test code = 2801) [id number] 06:43:00 Test Item Value Reference Range Interpretation Comments MAGNESIUM (BEAKER) (test code = 2.1 mg/dL 1.6-2.6 627)
[2020-10-11 08:13] LABS: Absolute Lymphocytes (CBC) 1.2 K/uL (0.7-4.9); Basophils % 0.2 % (0-1.3); Hematocrit 43.9 % (36.0-45.0); Lymphocytes % 9.3 % (15.3-44.8); RBC Red Blood Cell Count 4.79 M/uL (3.86-4.86)
[2020-10-11] MEDS ORDERED: ONDANSETRON 4 MG/2 ML VIAL ONE (08:17)
[2020-10-11] MEDS ORDERED: MAGNES/ALUMIN/SIMET 30ML UCUP ONE (08:17)
[2020-10-11] MEDS ORDERED: NA CHLORIDE 0.9% 1,000 ML ONE (08:18)
[2020-10-11] MEDS ORDERED: FAMOTIDINE 20 MG/2 ML VIAL IV ONE (08:18)
[2020-10-11] MEDS ORDERED: LIDOCAINE VISCOUS 2% SOLN 15 ML UDC ONE (08:18)
[2020-10-11 08:56] LABS: Albumin 4.3 g/dL (3.4-5.0); Bilirubin Direct 0.1 mg/dL (0-0.2); Bilirubin Total 0.5 mg/dL (0.2-1.0); Protein, Total 8.3 g/dL (6.4-8.2)
[2020-10-11 08:57] LABS: Blood Morphology Comment NOT SEEN (NOT SEEN); Platelet Estimate ADEQ; Potassium 3.8 mmol/L (3.5-5.1)
--- NOTE | 2020-10-11 09:02 | EDPHYS ---
Physician Documentation [facility] Name: Malena Kelley Age: 24 yrs Sex: Female : 1995 Arrival Date: 10/11/2020 Time: 06:43 Bed 8 Private MD: ED Physician Daniel Barlow HPI: 10/11 09:00 This 24 yrs old Female presents to ER via Ambulatory with complaints of ma2 Vomiting, Shortness Of Breath. 09:00 The patient presents to the emergency department with nausea, vomiting, abdominal pain, ma2 of the epigastric area. Onset: The symptoms/episode began/occurred acutely. Associated signs and symptoms: Pertinent positives: abdominal pain, Pertinent negatives: anorexia, constipation, dysuria, fever, GI bleeding. Severity of symptoms: At their worst the symptoms were moderate in the emergency department the symptoms are unchanged. The patient has not experienced similar symptoms in the past. 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 - Social history:: Patient/guardian denies using alcohol, street drugs, The patient lives with family, Smoking status: Patient denies any tobacco usage or history of. - Family history:: not pertinent. ROS: 09:00 Constitutional: Negative for fever, chills, and weight loss. ma2 09:00 All other systems are negative. Exam: 09:00 Constitutional: This is a well developed, well nourished patient who is awake, alert, ma2 and in no acute distress. Head/Face: Normocephalic, atraumatic. Eyes: Pupils equal round and reactive to light, extra-ocular motions intact. Lids and lashes normal. Conjunctiva and sclera are non-icteric and not injected. Cornea within normal limits. Periorbital areas with no swelling, redness, or edema. ENT: Nares patent. No nasal discharge, no septal abnormalities noted. Tympanic membranes are normal and external auditory canals are clear. Oropharynx with no redness, swelling, or masses, exudates, or evidence of obstruction, uvula midline. Mucous membranes moist. Neck: Trachea midline, no thyromegaly or masses palpated, and no cervical lymphadenopathy. Supple, full range of motion without nuchal rigidity, or vertebral point tenderness. No Meningismus. Chest/axilla: Normal chest wall appearance and motion. Nontender with no deformity. No lesions are appreciated. Cardiovascular: Regular rate and rhythm with a normal S1 and S2. No gallops, murmurs, or rubs. Normal PMI, no JVD. No pulse deficits. Respiratory: Lungs have equal breath sounds bilaterally, clear to auscultation and percussion. No rales, rhonchi or wheezes noted. No increased work of breathing, no retractions or nasal flaring. Abdomen/GI: Soft, non-tender, with normal bowel sounds. No distension or tympany. No guarding or rebound. No evidence of tenderness throughout. MS/ Extremity: Pulses equal, no cyanosis. Neurovascular intact. Full, normal range of motion. Neuro: Awake and alert, GCS 15, oriented to person, place, time, and situation. Cranial nerves II-XII grossly intact. Motor strength 5/5 in all extremities. Sensory grossly intact. Cerebellar exam normal. Normal gait. Vital Signs: 06:57 BP 122 / 91; Pulse 76; Resp 18; Temp 97.5; Pulse Ox 100% ; Weight 65.77 kg; Height 5 ea ft. 4 in. (162.56 cm); 07:03 BP 137 / 91; Pulse 76; Resp 18; Pulse Ox 100% on R/A; oe 09:00 BP 124 / 76; Pulse 70; Resp 15; Pulse Ox 100% on R/A; Pain 0/10; hb 06:57 Body Mass Index 24.89 (65.77 kg, 162.56 cm) ea MDM: 07:05 Patient medically screened. ma2 09:00 Differential diagnosis: Nonspecific abd pain, gastritis, viral gastroenteritis, ma2 gastroenteritis. Data reviewed: vital signs, nurses notes, lab test result(s), EKG. Counseling: I had a detailed discussion with the patient and/or guardian regarding: the historical points, exam findings, and any diagnostic results supporting the discharge/admit diagnosis, the presence of at least one elevated blood pressure reading (>120/80) during this emergency department visit, the need for outpatient follow up. Response to treatment: the patient's symptoms have markedly improved after treatment. 10/11 07:19 Order name: Basic Metabolic Panel ma2 10/11 07:19 Order name: CBC with Diff; Complete Time: 09:00 [facility] 10/11 07:19 Order name: Hepatic Function; Complete Time: 09:00 [facility] 10/11 07:19 Order name: Lipase; Complete Time: 09:00 [facility] 10/11 07:19 Order name: Basic Metabolic Panel; Complete Time: 09:00 [facility] 10/11 08:58 Order name: Manual Differential; Complete Time: 09:00 [facility] 10/11 07:19 Order name: IV Saline Lock; Complete Time: 08:02 [facility] 10/11 07:19 Order name: Labs collected and sent; Complete Time: 08: ny Administered Medications: 07:58 Drug: NS 0.9% 1000 ml Route: IV; Rate: 1 bolus; Site: right antecubital; hb 07:58 Drug: Zofran (Ondansetron) 4 mg Route: IVP; Site: right antecubital; hb 08:22 Follow up: Response: No adverse reaction hb 07:58 Drug: Pepcid 20 mg Route: IVP; Site: right antecubital; hb 08:22 Follow up: Response: No adverse reaction hb 07:58 Drug: GI Cocktail without - (Maalox Suspension 30 ml, Lidocaine Liquid 2 % 15 hb ml) Route: PO; 08:15 Follow up: Response: No adverse reaction hb Disposition: 10/11/20 09:02 Discharged to Home. Impression: Upper abdominal pain, unspecified. - Condition is Stable. - Discharge Instructions: Abdominal Pain, Adult. - Prescriptions for Zofran 4 mg Oral Tablet - take 1 tablet by ORAL route every 12 hours As needed; 20 tablet. Pepcid 20 mg Oral Tablet - take 1 tablet by ORAL route once daily; 20 tablet. - Work release form, Medication Reconciliation Form, Thank You Letter, Antibiotic Education, Prescription Opioid Use form. - Follow up: Private Physician; When: Tomorrow; Reason: Recheck today's complaints, Continuance of care. Signatures: Dispatcher [employer] EDXochitl Bhardwaj RN RN hb Alzahri, Mohammad, MD MD ma2 Corrections: (The following items were deleted from the chart) 09:22 09:02 10/11/2020 09:02 Discharged to Home. Impression: Upper abdominal pain, hb unspecified. Condition is Stable. Forms are Medication Reconciliation Form, Thank You Letter, Antibiotic Education, Prescription Opioid Use. Follow up: Private Physician; When: Tomorrow; Reason: Recheck today's complaints, Continuance of care. ma2
--- NOTE | 2020-10-11 09:02 | ER ---
Nurse's Notes [facility] Name: Malena Kelley Age: 24 yrs Sex: Female : 1995 Arrival Date: 10/11/2020 Time: 06:43 Bed 8 Private MD: Diagnosis: Upper abdominal pain, unspecified Presentation: 10/11 06:57 Chief complaint: Patient states: Reports she drank two margaritas last night, woke up ea this AM about 4 AM with nausea and vomiting. Coronavirus screen: At this time, the client does not indicate any symptoms associated with coronavirus-19. Ebola Screen: No symptoms or risks identified at this time. Initial Sepsis Screen: Does the patient meet any 2 criteria? No. Patient's initial sepsis screen is negative. Does the patient have a suspected source of infection? No. Patient's initial sepsis screen is negative. Risk Assessment: Do you want to hurt yourself or someone else? Patient reports no desire to harm self or others. Onset of symptoms was October 11, 2020. 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 - Social history:: Patient/guardian denies using alcohol, street drugs, The patient lives with family, Smoking status: Patient denies any tobacco usage or history of. - Family history:: not pertinent. Screenin:03 Abuse screen: Denies threats or abuse. Nutritional screening: No deficits noted. ea Tuberculosis screening: No symptoms or risk factors identified. Fall Risk IV access (20 points). Assessment: 07:45 General: Appears in no apparent distress. Behavior is calm, cooperative. Pain: Denies hb pain. Neuro: Level of Consciousness is awake, alert, obeys commands, Oriented to person, place, time, situation. Cardiovascular: Capillary refill < 3 seconds Patient's skin is warm and dry. Respiratory: Airway is patent Respiratory effort is even, unlabored, Respiratory pattern is regular, symmetrical. GI: Abdomen is non-distended, Reports intolerance of fluids, nausea, vomiting. : No signs and/or symptoms were reported regarding the genitourinary system. EENT: No signs and/or symptoms were reported regarding the EENT system. Derm: Skin is pink, warm \T\ dry. Musculoskeletal: No signs and/or symptoms reported regarding the musculoskeletal system. 08:30 Reassessment: Patient appears in no apparent distress at this time. Patient and/or hb family updated on plan of care and expected duration. Pain level reassessed. Patient is alert, oriented x 3, equal unlabored respirations, skin warm/dry/pink. 09:15 Reassessment: Patient appears in no apparent distress at this time. Patient and/or hb family updated on plan of care and expected duration. Pain level reassessed. Patient is alert, oriented x 3, equal unlabored respirations, skin warm/dry/pink. Vital Signs: 06:57 BP 122 / 91; Pulse 76; Resp 18; Temp 97.5; Pulse Ox 100% ; Weight 65.77 kg; Height 5 ea ft. 4 in. (162.56 cm); 07:03 BP 137 / 91; Pulse 76; Resp 18; Pulse Ox 100% on R/A; oe 09:00 BP 124 / 76; Pulse 70; Resp 15; Pulse Ox 100% on R/A; Pain 0/10; hb 06:57 Body Mass Index 24.89 (65.77 kg, 162.56 cm) ea ED Course: 06:43 Patient arrived in ED. cf2 07:00 Arm band placed on right wrist. Patient placed in an exam room, on a stretcher, on ea pulse oximetry. 07:00 Patient has correct armband on for positive identification. Bed in low position. Call ea light in reach. Side rails up X2. 07:03 Triage completed. ea 07:05 Daniel Barlow MD is Attending Physician. ma2 07:32 Xochitl Thacker, EVI is Primary Nurse. hb 07:59 Initial lab(s) drawn, by me, sent to lab. Inserted saline lock: 20 gauge in right dh3 antecubital area, using aseptic technique. Blood collected. 09:22 No provider procedures requiring assistance completed. IV discontinued, intact, hb bleeding controlled, No redness/swelling at site. Administered Medications: 07:58 Drug: NS 0.9% 1000 ml Route: IV; Rate: 1 bolus; Site: right antecubital; hb 07:58 Drug: Zofran (Ondansetron) 4 mg Route: IVP; Site: right antecubital; hb 08:22 Follow up: Response: No adverse reaction hb 07:58 Drug: Pepcid 20 mg Route: IVP; Site: right antecubital; hb 08:22 Follow up: Response: No adverse reaction hb 07:58 Drug: GI Cocktail without - (Maalox Suspension 30 ml, Lidocaine Liquid 2 % 15 hb ml) Route: PO; 08:15 Follow up: Response: No adverse reaction hb Outcome: 09:02 Discharge ordered by MD. chappell 09:22 Discharged to home ambulatory. hb 09:22 Condition: stable 09:22 Discharge instructions given to patient, Instructed on discharge instructions, follow up and referral plans. medication usage, Demonstrated understanding of instructions, follow-up care, medications, Prescriptions given X 2. 09:22 Patient left the ED. hb Signatures: Xochitl Thacker RN RN Richard Adhikari [facility] Chrissy Pelayo RN RN ea Alzahri, Mohammad, MD MD ar2 Edgard Starks 2
[2020-10-11 09:27] VITALS: TEMP 97.5; O2SAT 100
[2020-10-11 09:29] VITALS: BP 124/76
== END 2020-10-11 09:22 | disposition home or self-care (01) ==
LOC: ER 06:42
DX: R10.13 Epigastric pain (principal); R11.2 Nausea with vomiting, unspecified; R06.02 Shortness of breath; D68.0 Von Willebrand disease
CPT/HCPCS: 85025; 80048; 36415; 80076; 83690; 96375; 96374; 99284; J7030; J2405

== ENCOUNTER 2020-11-21 12:28 | Emergency (ER) | payer OTHER ==
--- OUTSIDE RECORDS SUMMARY | 2020-11-21 12:31 | XMS REPORT | Continuity of Care Document ---
:1995 Author Organization [facility] t Address [address] [place] [address] Care Team Providers Name Role Phone Asked, Pcp Primary Care Physician Unavailable BISI ORTEGA Attending Clinician Unavailable BISI ORTEGA Admitting Clinician Unavailable Problems Condition Condition Condition Status Onset Resolution Last Treating Co mments Source Name Details Category Date Date Treatment Clinician Date Hypokalemi Hypokalemi Disease Active [address] [facility] Leukocytos Leukocytos Disease Active [facility] Gray Volume Volume Disease Active [facility] depletion depletion 5-11 [facility] - 00:[facility]: Medical 00 Gray Nausea & Nausea & Disease [facility] Gray Hemophilia Hemophilia Disease Active 2019[facility] 00 Gray Acute Acute Disease Active 2019- [facility] appendicit appendicit 5-10 [facility] - is is 00:00: Medical 00 Gray Von Von Disease Active 2018- [facility] Willebrand Willebrand 5-10 [place] - disease disease 00:00: Medical 00 Gray Hemophilia Hemophilia Disease Active 2015-09 [facility]icia [facility] [address] [facility] 00:[facility]: st 00 Anxiety Anxiety Disease Active 2015-09 [place] 10-17 [facility]: st 00 Allergies, Adverse Reactions, Alerts This patient has no known allergies or adverse reactions. Family History Family Member Diagnosis Comments Start Date Stop Date Source Maternal grandmother Breast cancer [facility] Social History Social Habit Start Date Stop Date Quantity Comments Source History of tobacco Cigarette Smoker [facility] - use [facility] Cigarettes smoked 2019-01-22 2019-01-22 [facility] - current (pack per 00:00:00 00:00:00 [facility] day) - Reported Tobacco use and 2019-01-22 2019-01-22 Never used [facility] Tami kes - exposure 00:00:00 00:00:00 [facility] Alcohol intake 2016-09-22 2016-09-22 Current drinker [place] 00:00:00 00:00:00 of alcohol [employer] (finding) Sex Ass[birth year] [place] 00:00:00 00:00:00 [employer] Smoking Status Start Date Stop Date Source Current every day smoker 2019-01-22 00:00:00 [facility] Ordered Filled Start Stop Current Ordering Indication Dosage Frequency Signature Comments Components Source Medication Medication Date Date Medication? Clinician (SIG) Name Name cetirizine Yes 10mg QD Take [address] (ZYRTEC) 10 5-14 by mouth [facility] - MG tablet 13:53: daily. [facility] [address] PARoxetine 2015-09 Yes 20mg QD Take 20 mg [place] (PAXIL) 20 2-22 by mouth Metho di MG tablet 00:00: once st 00 daily. ALPRAZolam 2015-09 Yes .25mg Q.5D Take 0.25 [place] (XANAX) 1-03 mg by [facility] 0.25 MG 00:00: mouth 2 st tablet 00 (two) times a day as needed. norgestimat 2015-09 Yes 1{tbl} QD Take 1 [place] e-ethinyl 0-30 tablet by Meth[facility] di estradiol 00:00: mouth once st (ORTHO 00 daily. TRI-CYCLEN, TRINESSA) 0.18/0.215/ 0.25 mg-35 mcg (28) per tablet pantoprazol 2015-09 Yes TAKE 1 [place] 0-30 TABLET BY [facility] (PROTONIX) 00:00: MOUTH st 20 MG EC 00 EVERY tablet MORNING BEFORE BREAKFAST ondansetron 2015-09 Yes DISSOLVE 1 [place] ODT 0-03 TABLET ON [facility] (ZOFRAN-ODT 00:00: THE TONGUE st ) 4 MG 00 EVERY 4 disintegrat HOURS ing tablet NEEDED FOR NAUSEA OR VOMITING sertraline Yes TAKE 1 TAB H ran (ZOLOFT) 50 9-27 (50 MG [facility] [...] Future Scheduled 2020-04-12 INFLUENZA VACCINE [place] [facility] Test 00:00:00 [code = INFLUENZA VACCINE] Future Scheduled 2015-12-29 Screening for [facility] Test 00:00:00 malignant neoplasm of cervix (procedure) [code = 179131001] Future Scheduled 2015-12-[address] [facility] - Test 00:00:00 malignant neoplasm of [facility] cervix (procedure) [code = 103603854] Future Scheduled [address] [facility] - Test 00:00:00 (procedure) [code = [facility] 47503568] Future Scheduled 2010 COVID-19 VACCINE (1 of [place] [facility] Test 00:00:00 2) [code = COVID-19 VACCINE [...] (test code = 3210) 78.0 % 40.0-120.0 [id number] 05:56:00 Test Item Value Reference Range Interpretation [...] PERCENT (BEAKER) (test code = 2801) TISSUE [id number] 16:11:00Surgical Pathology Report Case: [id number] Authorizing Provider: Dave Foss MD Collected: 01/19/2019 1516 Ordering Location: [facility] Received: 01/19/2019 1557 SERVICES Pathologist: Mary Echavarria MD Specimen: Appendix APPENDIX, APPENDECTOMY: - ACUTE APPENDICITIS - NEGATIVE FOR MALIGNANCY Signing Pathologist Direct Phone Line: [phone] signed by Mary Echavarria MD on 01/22/2019 at 4:11 [id number] AppendixA. Received in a container labeled "appendix" [...] cm thick. No lesions are grossly identified. [employer] Operations Manager sections are submitted as follows: A1, appendix margin en face and bisected cyst; A2, agency service representative section of the appendix. TH/plPERFORMEDVWF [id number] 14:07:00 Test Item Value Reference Range Interpretation Comments VWF ACTIVITY (BEAKER) (test code = 80.0 % 40.0-120.0 3210) FACTOR 7 [id number] 12:20:00 Test Item Value Reference Range Interpretation Comments FACTOR VII ACTIVITY (BEAKER) (test 24.0 % 55.0-170.0 L code = 664) [id number] 06:10:00 Test Item Value Reference Range Interpretation Comments MAGNESIUM (BEAKER) 1.8 mg/dL 1.6-2.6 Specimen slightly (test code = 627) hemolyzed BASIC METABOLIC [id number] 06:10:00 Test Item Value Reference Range Interpretation [...] APPLICABLE FOR DIALYSIS PATIEN TS. HEPATIC FUNCTION [id number] 06:10:00 Test Item Value Reference Range Interpretation [...] Specimen slightly (test code = 347) hemolyzed [id number] 05:40:00 Test Item Value Reference Range Interpretation [...] PERCENT (BEAKER) (test code = 2801) VWF [id number] 11:57:00 Test Item Value Reference Range Interpretation Comments [facility]WF ACTIVITY (BEAKER) (test code = 75.0 % 40.0-120.0 3210) HEPATIC FUNCTION [id number] 05:56:00 Test Item Value Reference Range Interpretation [...] = 10 U/L 6-55 347) BASIC METABOLIC [id number] 05:56:00 Test Item Value Reference Range Interpretation [...] S NOT APPLICABLE FOR DIALYSIS PATIEN TS. [id number] 05:47:00 Test Item Value Reference Range Interpretation [...] PERCENT (BEAKER) (test code = 2801) CT, [id number] 12:23:00FINAL REPORT TECHNIQUE: CT of the abdomen [...] MDReport Verified Date/Time: 01/20/2019 12:23:01 Reading Location: [facility] B1 C013Y CT Body Reading Room URINALYSIS W/ REFLEX URINE [id number] 12:15:00 Test Item Value Reference Range Interpretation [...] SOURCE(BEAKER) (test code = 2795) FACTOR 7 [id number] 11:50:00 Test Item Value Reference Range Interpretation Comments FACTOR VII ACTIVITY (BEAKER) (test 20.0 % 55.0-170.0 L code = 664) VWF [id number] 11:28:00 Test Item Value Reference Range Interpretation Comments [facility]WF ACTIVITY (BEAKER) (test code = 75.0 % 40.0-120.0 3210) HEPATIC FUNCTION [id number] 05:37:00 Test Item Value Reference Range Interpretation [...] = 11 U/L 6-55 347) BASIC METABOLIC [id number] 05:37:00 Test Item Value Reference Range Interpretation [...] PATIEN TS. CBC W/PLT COUNT & AUTO [id number] 04:55:00 Test Item Value Reference Range Interpretation [...] 0-1 PERCENT (BEAKER) (test code = 2801) [id number] 04:54:00 Test Item Value Reference Range Interpretation [...] 2.5-3.5 for patients with mechanical heart valves.VWF [id number] 12:01:00 Test Item Value Reference Range Interpretation Comments VWF ACTIVITY (BEAKER) (test code = 65.0 % 40.0-120.0 3210) SCREEN, [id number] 11:25:00 Test Item Value Reference Range Interpretation Comments TEST URINE (BEAKER) (test Negative code = 583) FACTOR 7 [id number] 11:17:00 Test Item Value Reference Range Interpretation Comments FACTOR VII ACTIVITY (BEAKER) (test 25.0 % 55.0-170.0 L code = 664) FACTOR 8 [id number] 10:39:00 Test Item Value Reference Range Interpretation Comments FACTOR VIII ACTIVITY (BEAKER) (test 84.0 % 45.0-150.0 code = 663) VON WILLEBRAND FACTOR (VWF) [id number] 09:32:00 Test Item Value Reference Range Interpretation Comments VWF ANTIGEN (BEAKER) (test code = 57.0 % 50.0-160.0 3215) [id number] 08:19:00 Test Item Value Reference Range Interpretation [...] 0-1 PERCENT (BEAKER) (test code = 2801) [id number] 06:43:00 Test Item Value Reference Range Interpretation Comments MAGNESIUM (BEAKER) (test code = 2.1 mg/dL 1.6-2.6 627)
[2020-11-21 15:12] LABS: Urine Blood NEGATIVE (NEG); Urine Glucose NEGATIVE (NEG); Urine Protein NEGATIVE (NEG); Urine Specific Gravity 1.015 (1.005-1.030); Urine pH 7.5 (5.0-7.0)
--- NOTE | 2020-11-21 16:46 | ER ---
Nurse's Notes [facility] Name: Malena Kelley Age: 24 yrs Sex: Female : 1995 Arrival Date: 11/21/2020 Time: 12:30 Bed Waiting Private MD: Marylu Reynoso K Diagnosis: Presentation: 11/21 13:12 Chief complaint: Patient states: "I've been shaking for the past 3 days and today I got aa5 a pain to my left side". Pt states "my doctor sent me here and she said there was a little bit of blood in my urine". Pt c/o feeling lightheaded. Coronavirus screen: At this time, the client does not indicate any symptoms associated with coronavirus-19. Ebola Screen: Patient negative for fever greater than or equal to 101.5 degrees Fahrenheit, and additional compatible Ebola Virus Disease symptoms. Initial Sepsis Screen: Does the patient meet any 2 criteria? HR > 90 bpm. Does the patient have a suspected source of infection? No. Patient's initial sepsis screen is negative. Risk Assessment: Do you want to hurt yourself or someone else? Patient reports no desire to harm self or others. Onset of symptoms was November 2020. 13:12 Acuity: FERNANDO 3 aa5 13:12 Method Of Arrival: Ambulatory aa5 Historical: - Allergies: 13:16 No Known Allergies; aa5 - Home Meds: 13:16 Ortho Tri-Cyclen (28) 0.18/0.215/0.25 mg-35 mcg (28) Oral tab [Active]; aa5 - PMHx: 13:16 Factor 7; hemophilia; Von willebrand's; aa5 - PSHx: 13:16 Appendectomy; aa5 - Immunization history:: Adult Immunizations unknown. - Social history:: Smoking status: Patient reports the use of cigarette tobacco products, smokes one-half pack cigarettes per day. Vital Signs: 13:12 BP 130 / 108; Pulse 110; Resp 18 S; Temp 98.2(O); Pulse Ox 100% on R/A; Weight 63.5 kg aa5 (R); Height 5 ft. 4 in. (162.56 cm) (R); 13:12 Body Mass Index 24.03 (63.50 kg, 162.56 cm) aa5 ED Course: 12:30 Patient arrived in ED. ds1 12:32 Marylu Reynoso MD is Private Physician. ds1 13:12 Arm band placed on. aa5 13:15 Triage completed. aa5 16:45 No provider procedures requiring assistance completed. Patient did not have IV access ss during this emergency room visit. Administered Medications: No medications were administered Point of Care Testing: Blood Glucose: 13:18 Blood Glucose: 111 mg/dL; aa5 Ranges: Outcome: 16:45 Eloped from waiting room, before seeing physician ss 16:46 Patient left the ED. ss Signatures: Vibha Levin ds1 Shayla Pham, RN RN aa5 Mariaa Hahn RN RN ss Corrections: (The following items were deleted from the chart) 13:15 13:12 BP 130 / 108; Pulse 110bpm; Resp 18bpm; Spontaneous; Pulse Ox 100% RA; Temp 92F; aa5 63.5 kg Reported; Height 5 ft. 4 in. Reported; BMI: 24.0; aa5
[2020-11-21 16:50] VITALS: BP 130/108; TEMP 98.2; O2SAT 100
== END 2020-11-21 16:46 | disposition left against medical advice (07) ==
LOC: ER 12:28
DX: R68.89 Other general symptoms and signs (principal); Z53.21 Procedure and treatment not carried out due to patient leaving prior to being seen by health care provider; D68.2 Hereditary deficiency of other clotting factors; F17.210 Nicotine dependence, cigarettes, uncomplicated
CPT/HCPCS: 81003; 81025; 82947; 99281